=== PATIENT | male | born 1960 | race Caucasian/White ===

== ENCOUNTER → 2016-07-28 | Outpatient (CLI) | payer OTHER ==
--- NOTE | 2016-07-28 14:18 | KCIC ---
PROCEDURE MR of the right knee HISTORY Pain. Proximal fibula fracture. Injury June 2016. Surgery 2 years ago. COMPARISON None FINDINGS Medial meniscus is small and distorted compatible with prior meniscectomy. There is mild T2 signal within the meniscus which does violate the undersurface the posterior horn and is concerning for small recurrent tear. Blunting with some increased signal of the lateral meniscus, again could be partially attributable to meniscectomy but difficult to exclude a tear. The anterior cruciate ligament demonstrates some mild degenerative changes but no evidence of rupture or laxity. Posterior cruciate ligament is intact. Medial collateral ligament is intact. Iliotibial band unremarkable. There is some thickening and signal of the proximal fibular collateral ligament, compatible with scarring but no acute rupture or laxity. Biceps femoris tendon and popliteus tendon are intact. Extensor mechanism is intact. Small joint effusion. No evidence of an osteochondral loose body. 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 No bone lesion or acute fracture. Mild soft tissue edema/fluid at the posterior lateral corner of the knee. Mild subcutaneous edema anterior to the patellar tendon. There is scarring of the infrapatellar fat. IMPRESSION 1. Blunted medial meniscus consistent with prior meniscectomy, but there is also finding suspicious for recurrent tear. 2. Lateral meniscal abnormality may be due to prior meniscectomy, but difficult to exclude tear. 3. Moderate to severe tricompartmental primary osteoarthritis. Electronically signed by: Obi Allison MD (Jul 28, 2016 14:17:45)
--- NOTE | 2016-07-28 14:33 | KCIC ---
PROCEDURE MR of the right tibia fibula HISTORY Closed fracture of the proximal fibula. Pain. COMPARISON None FINDINGS There is a fracture of the proximal shaft of the fibula. There does appear to be some marginal callus suggesting this is not acute. Mild associated bone marrow edema. Edema/contusion within the surrounding muscle tissue. There is some linear fluid accumulation anterior to the soleus muscle and surrounding the flexor digitorum longus muscle at the level of the mid to distal calf. The tibia appears intact. No evidence of acute muscle tear. IMPRESSION 1. Proximal fibular shaft fracture. 2. Soft tissue fluid/hemorrhage identified anterior to the soleus muscle and around the flexor digitorum longus muscle. Electronically signed by: Obi Allison MD (Jul 28, 2016 14:31:46)
--- NOTE | 2016-07-28 14:56 | KCIC ---
PROCEDURE MR of the right ankle HISTORY Right ankle pain. Pain laterally and posteriorly. COMPARISON None TECHNIQUE Standard noncontrast images are obtained. FINDINGS Mild signal within the peroneus longus tendon compatible with tendinosis. No peroneal tendon tear. Mild surrounding fluid. High-grade tear or sprain of the anterior talofibular ligament, posterior talofibular ligament and calcaneofibular ligament. The anterior inferior tibiofibular ligament also is poorly seen and appears torn. The posterior tibial and flexor tendons are intact with mild surrounding tendon sheath fluid. Mild posterior tibial tendinosis. There is partial tear of the deep fibers of the deltoid ligament. The anterior tibial and the extensor tendons are intact. Achilles tendon intact. There is mild thickening of the central band of the plantar aponeurosis with low signal, compatible with scarring or chronic plantar fasciitis. Subtalar joints are patent. Tarsal sinus is edematous but otherwise intact. Subchondral edema signal at the lateral talar dome. There is mild irregularity of the overlying subchondral bone plate may indicate nondisplaced fracture. No evidence of unstable osteochondral lesion however. There is mild marrow edema/contusion at distal tibia. There is soft tissue edema/hemorrhage around the ankle. Small tibiotalar and posterior subtalar joint effusions. Mild subchondral cystic type change about the tarsal bones likely degenerative. IMPRESSION 1. Lateral ankle ligament tears. 2. Tear of the anterior inferior tibiofibular ligament. 3. Partial medial deltoid ligament tear. 4. Small subchondral lesion at the lateral talar dome, without evidence of instability. Electronically signed by: Obi Allison MD (Jul 28, 2016 14:54:48)
== END | disposition home or self-care (01) ==
LOC: KCIC MRI 12:15
PROVIDERS: ATTEND Physician Assistant Medical
DX: S82.831A Other fracture of upper and lower end of right fibula, initial encounter for closed fracture (principal); M25.561 Pain in right knee; S99.911D Unspecified injury of right ankle, subsequent encounter; M79.89 Other specified soft tissue disorders; S93.401A Sprain of unspecified ligament of right ankle, initial encounter; S93.431A Sprain of tibiofibular ligament of right ankle, initial encounter; S93.421A Sprain of deltoid ligament of right ankle, initial encounter
CPT/HCPCS: 73718; 73721